=== PATIENT | male | born 1960 ===

== ENCOUNTER 2017-06-09 10:31 | Outpatient (CLI) | payer OTHER ==
[~2017-06-09] VITALS: Ht 152.4 cm; Wt 87.1 kg
== END 2017-06-09 10:45 | disposition home or self-care (01) ==
LOC: OFIC 805 10:31
DX: H93.11 Tinnitus, right ear (principal); H90.3 Sensorineural hearing loss, bilateral

== ENCOUNTER 2017-11-10 12:46 | Outpatient (CLI) | payer OTHER | END 2017-11-10 12:56 | disposition home or self-care (01) | LOC: MRI 12:46 | DX: H93.11 Tinnitus, right ear (principal) | CPT/HCPCS: 70553; A9579 ==

== ENCOUNTER → 2019-03-27 | Outpatient (CLI) | payer OTHER ==
[~2019-03-27] VITALS: Ht 152.4 cm; Wt 87.5 kg
== END | disposition home or self-care (01) ==
LOC: OFIC 805 03-06 09:00
DX: H93.11 Tinnitus, right ear (principal); H90.3 Sensorineural hearing loss, bilateral; R42 Dizziness and giddiness